=== PATIENT | male | born 1940 | race American Indian/Alaskan Native ===

== ENCOUNTER 2020-11-27 06:55 | Day surgery (SDC) | payer MEDICARE ==
[2020-11-27] MEDS ORDERED: SODIUM CHLORIDE 0.9% 1000 ML 1,000 ML ONE (08:36)
[2020-11-27] MEDS ORDERED: SODIUM CHLORIDE 0.9% 1000 ML 1,000 ML IV SCH (09:00)
[2020-11-27 09:32] VITALS: BP 122/74
--- NOTE | 2020-11-27 13:00 | Cat Scan Report ---
CT ABDOMEN AND PELVIS WITH AND WITHOUT CONTRAST HISTORY: Renal mass. COMPARISON: None. TECHNIQUE: Helical CT images of the abdomen and pelvis were obtained before and after administration of intravenous contrast. Sagittal and coronal reformatted images were reviewed. All CT scans at this location are performed using CT dose reduction for ALARA by means of automated exposure control. CONTRAST: 100 ml of intravenous contrast administered. FINDINGS: Abdomen/pelvis: Both kidneys are normal size, contour and position. A 2.0 x 1.8 x 2.6 cm predominant ly solid enhancing mass is identified in the superior right kidney. This lesion enhances similar to n ormal renal parenchyma. The lesion demonstrates well-circumscribed borders, no calcifications and no obvious neovascularity. The right renal vein is patent. No abdominal or pelvic adenopathy is detected . The left kidney is unremarkable. The ureters are normal course and caliber. Normal bladder and pros aguillon gland. The liver is unremarkable. Cholecystectomy changes are evident. The pancreas, spleen, adrenal glands and bowel loops are unremarkable. Normal appendix. There are moderate diffuse aortic and iliac calcifications. No aneurysm or stenosis. No free fluid, free air or inflammatory changes. Lungs/bones: Minor linear atelectasis or hypoventilatory changes are noted in the lower lobes. No pu lmonary nodule. Heart size is normal. Pacemaker device is noted. Mild to moderate multilevel lumbar l ordosis is identified. No suspicious bony lesion or fracture. IMPRESSION: Right renal mass as described. A neoplastic process cannot be excluded. No evidence for metastatic di sease. Signer Name: Sang Hernandez Jr, MD Signed: 11/27/2020 12:56 PM Workstation Name: [id number]
== END 2020-11-27 15:00 | disposition home or self-care (01) ==
LOC: CATHLABREC 06:55
PROVIDERS: ATTEND Radiology Diagnostic Radiology
DX: N28.89 Other specified disorders of kidney and ureter (principal); I25.10 Atherosclerotic heart disease of native coronary artery without angina pectoris; K21.9 Gastro-esophageal reflux disease without esophagitis
CPT/HCPCS: 74178; J7030; Q9967; 96360; 96361